=== PATIENT | female | born 1945 | race Caucasian/White ===

== ENCOUNTER → 2016-12-18 | Outpatient (REF) ==
[~2016-12-18] MED LIST: ALEVE 220MG220 MG PO; ALLEGRA 180MG180 MG PO; BETAPACE 120MG120 MG PO; BETAPACE 80MG80 MG PO; CARDIZEM CD 24240 MG PO; CENTRUM SILVER1 CTB PO; CULTURELLE CAP1 EAC1 PO; ELIQUIS 5MG PO; GAS-X80 MG PO; GLUCOSAMINE 1000 PO; HYZAAR 25 MG-101 TAB PO; HYZAAR 50-12.1 UDTAB PO; K-TAB20 PO; MUCINEX1200 MG PO; NASONEX SPRAY17 GM NS; NEURONTIN300 MG/CAP PO; NEXIUM 40MG40 MG PO; NORCO 325 MG-51 TAB PO; OMEGA-3 FISH1000 MG PO; REGLAN 10MG10 MG/TAB PO; ROBAXIN 75750 MG/TAB PO; RT ADVAIR 128 DISKUS IH; SINGULAIR 110 MG/TAB PO; TENORMIN 5050 MG/TAB PO; ZYLOPRIM 300MG300 MG PO; [UNRECOGNIZED DRUG - OTHER] OP; [UNRECOGNIZED DRUG - OTHER] PO; [UNRECOGNIZED DRUG - OTHER] PO
== END ==
LOC: ZLAB.WCH 10:10
DX: Z01.89 Encounter for other specified special examinations (principal)

== ENCOUNTER 2017-03-29 07:27 | Outpatient (CLI) | payer MEDICARE, OTHER ==
[~2017-03-29 07:27] MED LIST changes: -ALEVE 220MG220 MG PO; -[UNRECOGNIZED DRUG - OTHER] PO
[2017-03-29 08:30] VITALS: BP 143/49; PULSE 55
[2017-03-29] MEDS ORDERED: ALEVE 220MG220 MG PO (09:14)
[2017-03-29] MEDS ORDERED: [UNRECOGNIZED DRUG - OTHER] PO (09:14)
[2017-03-29 09:19] VITALS: BP 132/50; PULSE 53
== END 2017-03-29 10:15 | disposition home or self-care (01) ==
LOC: EUO 07:27 → COL.CAR 07:45 → EUO 10:15
DX: I48.91 Unspecified atrial fibrillation (principal)
CPT/HCPCS: 27124; C1764

== ENCOUNTER → 2017-08-08 | Outpatient (CLI) | payer MEDICARE, OTHER ==
[~2017-08-08] MED LIST changes: +ALEVE 220MG220 MG PO; +[UNRECOGNIZED DRUG - OTHER] PO
== END ==
LOC: MHCPAIN 13:23
DX: G89.29 Other chronic pain (principal); M47.27 Other spondylosis with radiculopathy, lumbosacral region; M53.3 Sacrococcygeal disorders, not elsewhere classified; M96.1 Postlaminectomy syndrome, not elsewhere classified
CPT/HCPCS: G0463

== ENCOUNTER → 2017-08-23 | Outpatient (CLI) | payer MEDICARE, OTHER | LOC: MHCPAIN 10:45 | DX: M51.16 Intervertebral disc disorders with radiculopathy, lumbar region (principal); M96.1 Postlaminectomy syndrome, not elsewhere classified; M71.38 Other bursal cyst, other site | CPT/HCPCS: J1040; Q9967 ==

== ENCOUNTER → 2017-12-11 | Outpatient (CLI) | payer MEDICARE, OTHER | LOC: MHCPAIN 09:57 | DX: G89.29 Other chronic pain (principal); M47.27 Other spondylosis with radiculopathy, lumbosacral region; M53.3 Sacrococcygeal disorders, not elsewhere classified; M96.1 Postlaminectomy syndrome, not elsewhere classified | CPT/HCPCS: G0463 ==

== ENCOUNTER → 2018-03-06 | Outpatient (CLI) | payer MEDICARE, OTHER | LOC: MHCPAIN 12:49 | DX: G89.29 Other chronic pain (principal); M47.817 Spondylosis without myelopathy or radiculopathy, lumbosacral region; M54.16 Radiculopathy, lumbar region; M53.3 Sacrococcygeal disorders, not elsewhere classified; M96.1 Postlaminectomy syndrome, not elsewhere classified | CPT/HCPCS: G0463 ==

== ENCOUNTER → 2018-03-21 | Outpatient (CLI) | payer MEDICARE, OTHER | LOC: MHCPAIN 12:03 | DX: M47.817 Spondylosis without myelopathy or radiculopathy, lumbosacral region (principal); M46.96 Unspecified inflammatory spondylopathy, lumbar region; M41.9 Scoliosis, unspecified | CPT/HCPCS: J1040; Q9967 ==

== ENCOUNTER → 2018-06-25 | Outpatient (CLI) | payer MEDICARE, OTHER | LOC: MHCPAIN 14:07 | DX: G89.29 Other chronic pain (principal); M47.817 Spondylosis without myelopathy or radiculopathy, lumbosacral region; M54.6 Pain in thoracic spine; M54.16 Radiculopathy, lumbar region; M53.3 Sacrococcygeal disorders, not elsewhere classified | CPT/HCPCS: G0463 ==

== ENCOUNTER → 2018-09-24 | Outpatient (CLI) | payer MEDICARE, OTHER | LOC: MHCPAIN 12:44 | DX: G89.29 Other chronic pain (principal); M47.817 Spondylosis without myelopathy or radiculopathy, lumbosacral region; M54.16 Radiculopathy, lumbar region; M53.3 Sacrococcygeal disorders, not elsewhere classified; M96.1 Postlaminectomy syndrome, not elsewhere classified | CPT/HCPCS: G0463 ==

== ENCOUNTER 2018-11-25 16:42 | Inpatient (IN) | payer MEDICARE, OTHER ==
[~2018-11-25] VITALS: Ht 154.9 cm; Wt 92.9 kg
[~2018-11-25 16:42] MED LIST changes: -ACIDOPHILIS; -BIOTIN10000 MCG PO; -EMU OIL 1 ML1 ML; -FLONASE NASAL S16 GM NS; -PAZEO2.5 ML OP; -PERCOCET 325 MG1 TA2 PO; -ROBAXIN 50500 MG/TAB PO; -RT ADVAIR 228 DISKUS IH; -SOLARAZE3%; -SPIRIVA RE2.5 MCG/Ac IH; -VENTOLIN0.09 MG IH; -ZYRTEC 10MG10 MG PO
--- NOTE | 2018-11-25 18:30 | NUR ---
Pt arrives to medical unit rm [id number] via EMS. Pt awake and alert, denies needs at this time. IVF's infusing through right AC without s/s of complications. Call light in reach.
[2018-11-25 18:58] VITALS: BP 117/44; PULSE 82; TEMP 101.5
[2018-11-25] MEDS ORDERED: RT ADVAIR 228 DISKUS IH (19:24)
[2018-11-25] MEDS ORDERED: SOLARAZE3% (19:27)
[2018-11-25] MEDS ORDERED: FLONASE NASAL S16 GM NS (19:30)
[2018-11-25] MEDS ORDERED: ROBAXIN 50500 MG/TAB PO (19:33)
[2018-11-25] MEDS ORDERED: PERCOCET 325 MG1 TA2 PO (19:35)
[2018-11-25] MEDS ORDERED: SPIRIVA RE2.5 MCG/Ac IH (19:39)
[2018-11-25] MEDS ORDERED: ZYRTEC 10MG10 MG PO (19:40)
[2018-11-25] MEDS ORDERED: VENTOLIN0.09 MG IH (19:41)
[2018-11-25] MEDS ORDERED: BIOTIN10000 MCG PO (19:43)
[2018-11-25] MEDS ORDERED: CENTRUM SILVER1 CTB PO (19:44)
[2018-11-25] MEDS ORDERED: EMU OIL 1 ML1 ML (19:46)
[2018-11-25] MEDS ORDERED: ACIDOPHILIS (19:48)
[2018-11-25] MEDS ORDERED: PAZEO2.5 ML OP (19:52)
--- NOTE | 2018-11-25 20:04 | NUR ---
Patient in room with at bedside. Assessment completed, elevated temperature, on 1 L oxygen for comfort at this time. Denies pain. Ambulatory with walker. Lung sounds clear. Abdomen soft/flat with bowel sounds all quadrants.
[2018-11-25 22:48] VITALS: BP 123/41; PULSE 72; TEMP 98.4
[2018-11-26 03:42] VITALS: BP 157/79; PULSE 73; TEMP 98.7
--- NOTE | 2018-11-26 05:10 | NUR ---
Patient slept most of the night, CPAP on at night. NS infusing, IV site free of complications. Denies pain. VSS, afebrile after acetaminophen administered last night. No further needs at this time.
--- NOTE | 2018-11-26 06:23 | NUR ---
Post void bladder scan, 75 mls after voiding.
[2018-11-26 06:40] LABS: BASO # 0.1 (0.0-0.2); BASO % 0.4 % (0.0-2.0); EOS # 0.1 (0.0-0.7); EOS % 1.1 % (0-4.0); GRAN # 8.3 (1.4-6.5); GRAN % 74.2 % (42.2-75.2); HEMOGLOBIN 11.9 g/dl (12.5-16.0); LYMPH # 1.7 (1.2-3.4); LYMPH % 14.9 % (20.0-51.0); MEAN CELL VOLUME 102 fl (80.0-100.0); MEAN CORPUSCULAR HEMOGLOBIN 34 pg (27.0-31.0); MEAN CORPUSCULAR HGB CONC 34 g/dl (33.0-37.0); MONO % 8.6 % (1.7-9.3); PLATELET COUNT 116 K/mm3 (130-400); RED BLOOD COUNT 3.46 M/mm3 (4.10-5.30); REDCELL DISTRIBUTION WIDTH-CV 13.7 % (11.5-14.5)
[2018-11-26 06:41] LABS: HEMATOCRIT 35.2 % (37.0-47.0)
[2018-11-26 06:53] LABS: ALBUMIN 3.2 gm/dL (3.5-5.0); BILIRUBIN,TOTAL 0.7 mg/dL (0.0-1.0); CALCIUM 8.2 mg/dL (8.4-10.2); CREATININE, serum 1.69 mg/dL (0.52-1.25); POTASSIUM 4.4 mmol/L (3.4-5.0); TOTAL PROTEIN 6.3 gm/dL (6.4-8.2)
--- NOTE | 2018-11-26 07:10 | NUR ---
appears to be dozing with CPAP on, awakens easily and patient removes CPAP, bedside shift report received from JOE Lea
--- NOTE | 2018-11-26 07:40 | NUR ---
appears to be sleeping, awakened and CPAP removed, full assessment completed, see interventions for further info, denies needs at this time
[2018-11-26 08:14] VITALS: BP 131/49; PULSE 59; TEMP 98.1
--- NOTE | 2018-11-26 08:50 | NUR ---
resting in bed, medicated with robaxin and percocet 5mg 1 tab per patient's request, she states she takes them every am to help with pain in order to be up
--- NOTE | 2018-11-26 09:05 | NUR ---
to radiology per WC for MRI
--- NOTE | 2018-11-26 09:45 | NUR ---
returned from MRI per WC, patient states she is having some wheezing that started while she was in MRI, some audible expiratory wheezing heard at intervals, a few exp wheezes heard on ausculation in upper lobs, denies shortness of breath, will rest in chair and order breakfast and if becomes worse will notify the nurse
--- NOTE | 2018-11-26 09:59 | NUR ---
physical therapy in to work with patient, ambulated out to morgan and then back to room and into recliner again
--- NOTE | 2018-11-26 10:45 | NUR ---
occupational therapy in to see anthony
--- NOTE | 2018-11-26 11:51 | NUR ---
Elvis Wagner and care team in to see patient
[2018-11-26 12:15] VITALS: BP 113/82; PULSE 60; TEMP 98.2
--- NOTE | 2018-11-26 12:15 | NUR ---
remains up in chair visiting with labor and delivery nurse, denies pain or needs
--- NOTE | 2018-11-26 12:33 | NUR ---
SW attended clinical rounding and met with patient to discuss discharge planning. Patient lives with rajesh in [place]. She uses a 4WW to ambulate. Patients PCP is Dr Cristo Wood and she obtains her medications from [place] [facility]. PT is recommending outpatient PT. No other discharge needs identified.
--- NOTE | 2018-11-26 13:34 | NUR ---
remains up in chair visiting with
--- NOTE | 2018-11-26 14:22 | NUR ---
back in bed and appears to be dozing
--- NOTE | 2018-11-26 16:14 | NUR ---
entered room and she is holding her left side and grimacing and tearful, states she called for her rescuse inhaler and nobody has come yet, cardiopulmonary notified again and they are here now, she is unsure why she is having pain in her left side, will monitor
[2018-11-26 16:25] VITALS: BP 130/94; PULSE 62; TEMP 98.3
--- NOTE | 2018-11-26 16:27 | NUR ---
states is feeling better now that rescuser inhaler provided, encouraged to try and rest
--- NOTE | 2018-11-26 16:50 | NUR ---
resting in bed visiting with a friend, states is feeling better now, no grimacing or tearring noted
--- NOTE | 2018-11-26 18:05 | NUR ---
called to room by DIRECTOR EPIDEMIOLOGY, patient is having SOB and audible wheezing and expeiraotry wheezes heard on ausculation, O2 sat on room air 92% and O2 on at 2L/NC, Umm COSTA notifed and orders received
--- NOTE | 2018-11-26 18:17 | NUR ---
BREATHING TX DONE NO IMPROVEMENT WITH BREATH SOUNDS ARE WORK OF BREATHING.
--- NOTE | 2018-11-26 18:24 | NUR ---
cardiopulmonary in and administering breathing treatment
--- NOTE | 2018-11-26 18:26 | NUR ---
PT HAS IMPROVEMENT IN BREATH SOUND AFTER 2ND DUONEB BUT NO DECREASE IN WORK OF BREATHING. PT PUT ON HER HOME CPAP WITH 12 CM TO HELP WITH THAT.
--- NOTE | 2018-11-26 18:34 | NUR ---
cardiouplmonary completed treatment and placed her on her CPAP, resting in bed with eyes closed, resp rate at 24, no audible wheezing heard
[2018-11-26 19:07] LABS: ARTERIAL BLD GAS O2 SATURATION 93.3 % (92-100); ARTERIAL BLD GAS TCO2 CT 16.9; ARTERIAL BLOOD GAS BASE EXCESS -6.3 (-2-2); ARTERIAL BLOOD GAS HCO3 16.1 meq/L (22-26); ARTERIAL BLOOD GAS PCO2 24.5 mmHg (35-45); ARTERIAL BLOOD GAS PO2 61.3 mmHg (80-100); ARTERIAL BLOOD GAS pH 7.44 (7.35-7.45)
--- NOTE | 2018-11-26 19:10 | NUR ---
bedside shift report given to JOE Lea, breathing is easier at this time at a rate of 20
[2018-11-26 19:59] VITALS: BP 129/54; PULSE 82; TEMP 100.4
--- NOTE | 2018-11-26 20:15 | NUR ---
Patient recovering from earlier episode of hyperventilation, SOB. CPAP off while eating dinner. C/O mild headache, and has a slight temperature, given tylenol for temp and pain. Sitting up at side of bed. Assessment completed. IV site free of complications, fluids at 75 mls/hr.
--- NOTE | 2018-11-26 20:43 | NUR ---
PT SITTING ON SIDE OF BED TRYING TO GET BACK IN BED. WE HELPED HER INTO BED AND THIS ACTIVITY CAUSED HER TO BE SHORT OF BREATH. GAVE PT TREATMENT WHICH HELPED. AFTER TX PT RINSED OUT MOUTH STEVE WENT ON HOME CPAP.
[2018-11-26 22:01] VITALS: TEMP 100
[2018-11-27 00:25] VITALS: BP 130/54; PULSE 66; TEMP 98.7
[2018-11-27 04:23] VITALS: BP 111/47; PULSE 58; TEMP 98.1
--- NOTE | 2018-11-27 05:31 | NUR ---
Patient slept most of the night, wore CPAP. No complaints of pain. Elevated temp at start of shift, acetaminophen lowered temp.
[2018-11-27 07:56] VITALS: BP 133/48; PULSE 59; TEMP 97.4
--- NOTE | 2018-11-27 08:25 | NUR ---
Pt resting in bed with call light within reach. PRN medications given for pain. Denies further needs at this time; will continue to monitor.
[2018-11-27 10:35] VITALS: BP 130/60; PULSE 61; TEMP 97.8
[2018-11-27 11:03] LABS: BASO % 0.5 % (0.0-2.0); EOS # 0.1 (0.0-0.7); EOS % 1.5 % (0-4.0); GRAN % 68.1 % (42.2-75.2); HEMOGLOBIN 11.2 g/dl (12.5-16.0); LYMPH # 1.8 (1.2-3.4); MEAN CELL VOLUME 100 fl (80.0-100.0); MEAN CORPUSCULAR HEMOGLOBIN 34 pg (27.0-31.0); MEAN CORPUSCULAR HGB CONC 34 g/dl (33.0-37.0); MEAN PLATELET VOLUME 10.3 fl (7.4-10.4); MONO # 0.8 (0.1-0.6); MONO % 9.2 % (1.7-9.3); PLATELET COUNT 149 K/mm3 (130-400); RED BLOOD COUNT 3.28 M/mm3 (4.10-5.30); REDCELL DISTRIBUTION WIDTH-CV 13.8 % (11.5-14.5)
[2018-11-27 11:04] LABS: HEMATOCRIT 32.8 % (37.0-47.0)
[2018-11-27 11:11] LABS: CALCIUM 8.2 mg/dL (8.4-10.2); CREATININE, serum 1.26 mg/dL (0.52-1.25); POTASSIUM 4.3 mmol/L (3.4-5.0)
--- NOTE | 2018-11-27 13:26 | NUR ---
First visit from the bankruptcy processor. prayed with patient. No other needs right now.
--- NOTE | 2018-11-27 14:27 | NUR ---
PT ON ROOM AIR @ REST SPO2 92% PT WALKED ON ROOM AIR W/PT AND RT SPO2 85% AFTER APPROX 40 FT. O2 ON @ 2 LPM NC PT WALKED BACK TO ROOM. C/O FEELLING WINDED. SPO2 93%
[2018-11-27] MEDS ORDERED: CEFTIN500 MG PO (15:22)
--- NOTE | 2018-11-27 15:43 | NUR ---
SW and SW student met with patient to discuss home o2. Patient would like to use [facility] and signed a choice form. SW obtained prescription and faxed clinical information to [facility]. Concentrator will be delivered to the hosptial prior to patients dc today. No other needs. Patient dc home today with family support.
--- NOTE | 2018-11-27 17:00 | NUR ---
Reviewed all discharge medications, instructions, and follow up appointments with patient. INT and tele removed. All questions answered in depth. Reviewed importance of antibiotics. Denies further needs at this time. Pt walked out to car and discharges.
== END 2018-11-27 17:06 | disposition home or self-care (01) | DRG 683 ==
LOC: MEDICAL 16:42
PROVIDERS: Nurse Practitioner Family; Physician Assistant; ADMIT Hospitalist
DX: N17.9 Acute kidney failure, unspecified (principal); N39.0 Urinary tract infection, site not specified; E87.1 Hypo-osmolality and hyponatremia; J98.11 Atelectasis; E86.0 Dehydration; I10 Essential (primary) hypertension; I48.91 Unspecified atrial fibrillation; Z79.01 Long term (current) use of anticoagulants; J45.909 Unspecified asthma, uncomplicated; R73.9 Hyperglycemia, unspecified; B96.20 Unspecified Escherichia coli [E. coli] as the cause of diseases classified elsewhere; M25.362 Other instability, left knee
CPT/HCPCS: 99222-AI; 99239; A4216; A9284; J0696; J2405; J7030

== ENCOUNTER → 2018-11-25 | Outpatient (REF) ==
[~2018-11-25] MED LIST changes: +ACIDOPHILIS; +BIOTIN10000 MCG PO; +EMU OIL 1 ML1 ML; +FLONASE NASAL S16 GM NS; +PAZEO2.5 ML OP; +PERCOCET 325 MG1 TA2 PO; +ROBAXIN 50500 MG/TAB PO; +RT ADVAIR 228 DISKUS IH; +SOLARAZE3%; +SPIRIVA RE2.5 MCG/Ac IH; +VENTOLIN0.09 MG IH; +ZYRTEC 10MG10 MG PO
== END ==
LOC: ZLAB.WCH 19:22
DX: Z01.89 Encounter for other specified special examinations (principal)

== ENCOUNTER → 2018-12-17 | Outpatient (CLI) | payer MEDICARE, OTHER ==
[~2018-12-17] MED LIST changes: +ACIDOPHILIS; +BIOTIN10000 MCG PO; +CEFTIN500 MG PO; +EMU OIL 1 ML1 ML; +FLONASE NASAL S16 GM NS; +PAZEO2.5 ML OP; +PERCOCET 325 MG1 TA2 PO; +ROBAXIN 50500 MG/TAB PO; +RT ADVAIR 228 DISKUS IH; +SOLARAZE3%; +SPIRIVA RE2.5 MCG/Ac IH; +VENTOLIN0.09 MG IH; +ZYRTEC 10MG10 MG PO
== END ==
LOC: MHCPAIN 12:08
DX: G89.29 Other chronic pain (principal); M47.817 Spondylosis without myelopathy or radiculopathy, lumbosacral region; M54.16 Radiculopathy, lumbar region; M53.3 Sacrococcygeal disorders, not elsewhere classified; M96.1 Postlaminectomy syndrome, not elsewhere classified
CPT/HCPCS: G0463

== ENCOUNTER → 2019-03-19 | Outpatient (CLI) | payer MEDICARE, OTHER | LOC: MHCPAIN 12:43 | DX: G89.29 Other chronic pain (principal); M47.817 Spondylosis without myelopathy or radiculopathy, lumbosacral region; M54.16 Radiculopathy, lumbar region; M53.3 Sacrococcygeal disorders, not elsewhere classified; M96.1 Postlaminectomy syndrome, not elsewhere classified | CPT/HCPCS: G0463 ==

== ENCOUNTER → 2019-06-04 | Outpatient (CLI) | payer MEDICARE, OTHER | LOC: MHCPAIN 12:37 | DX: G89.29 Other chronic pain (principal); M47.817 Spondylosis without myelopathy or radiculopathy, lumbosacral region; M54.16 Radiculopathy, lumbar region; M53.3 Sacrococcygeal disorders, not elsewhere classified; M48.061 Spinal stenosis, lumbar region without neurogenic claudication | CPT/HCPCS: G0463 ==

== ENCOUNTER → 2019-08-26 | Outpatient (CLI) | payer MEDICARE, OTHER | LOC: MHCPAIN 12:51 | DX: G89.29 Other chronic pain (principal); M47.817 Spondylosis without myelopathy or radiculopathy, lumbosacral region; M54.16 Radiculopathy, lumbar region; M53.3 Sacrococcygeal disorders, not elsewhere classified; M96.1 Postlaminectomy syndrome, not elsewhere classified | CPT/HCPCS: G0463 ==

== ENCOUNTER → 2019-11-25 | Outpatient (CLI) | payer MEDICARE, OTHER | LOC: MHCPAIN 12:48 | DX: M47.817 Spondylosis without myelopathy or radiculopathy, lumbosacral region (principal); M54.16 Radiculopathy, lumbar region | CPT/HCPCS: G0463 ==

== ENCOUNTER 2019-12-05 13:45 | Outpatient (RCR) | payer MEDICARE, OTHER | END 2019-12-09 | disposition home or self-care (01) | LOC: WSC | DX: G89.29 Other chronic pain (principal); M54.5 Low back pain ==

== ENCOUNTER → 2019-12-31 | Outpatient (CLI) | payer MEDICARE, OTHER | LOC: COL.RAD 10:58 | DX: Z01.812 Encounter for preprocedural laboratory examination (principal); M47.816 Spondylosis without myelopathy or radiculopathy, lumbar region; M43.16 Spondylolisthesis, lumbar region; M48.061 Spinal stenosis, lumbar region without neurogenic claudication; N18.3 Chronic kidney disease, stage 3 (moderate); Z98.890 Other specified postprocedural states | CPT/HCPCS: A9585 ==

== ENCOUNTER → 2020-05-25 | Outpatient (CLI) | payer MEDICARE, OTHER | LOC: MHCPAIN 12:55 | DX: M47.817 Spondylosis without myelopathy or radiculopathy, lumbosacral region (principal); M54.5 Low back pain; M53.3 Sacrococcygeal disorders, not elsewhere classified; G89.29 Other chronic pain; M54.16 Radiculopathy, lumbar region | CPT/HCPCS: G0463 ==

== ENCOUNTER → 2020-06-03 | Outpatient (CLI) | payer MEDICARE, OTHER | LOC: MHCPAIN 08:54 | DX: M47.817 Spondylosis without myelopathy or radiculopathy, lumbosacral region (principal); M54.5 Low back pain; M96.1 Postlaminectomy syndrome, not elsewhere classified; M54.16 Radiculopathy, lumbar region ==

== ENCOUNTER → 2020-06-16 | Outpatient (CLI) | payer MEDICARE, OTHER | LOC: MHCPAIN 12:24 | DX: M47.817 Spondylosis without myelopathy or radiculopathy, lumbosacral region (principal); M54.5 Low back pain; M96.1 Postlaminectomy syndrome, not elsewhere classified; M53.3 Sacrococcygeal disorders, not elsewhere classified; G89.29 Other chronic pain | CPT/HCPCS: G0463 ==

== ENCOUNTER → 2020-07-08 | Outpatient (CLI) | payer MEDICARE, OTHER | LOC: MHCPAIN 12:53 | DX: M47.817 Spondylosis without myelopathy or radiculopathy, lumbosacral region (principal); M96.1 Postlaminectomy syndrome, not elsewhere classified; M54.5 Low back pain | CPT/HCPCS: J1040; Q9967 ==

== ENCOUNTER → 2020-08-24 | Outpatient (CLI) | payer MEDICARE, OTHER | LOC: MHCPAIN 12:48 | DX: M47.817 Spondylosis without myelopathy or radiculopathy, lumbosacral region (principal); M54.5 Low back pain; M53.3 Sacrococcygeal disorders, not elsewhere classified; G89.29 Other chronic pain; M96.1 Postlaminectomy syndrome, not elsewhere classified | CPT/HCPCS: G0463 ==

== ENCOUNTER → 2020-11-23 | Outpatient (CLI) | payer MEDICARE, OTHER | LOC: MHCPAIN 12:42 | DX: M47.816 Spondylosis without myelopathy or radiculopathy, lumbar region (principal); M96.1 Postlaminectomy syndrome, not elsewhere classified; M53.3 Sacrococcygeal disorders, not elsewhere classified; G89.29 Other chronic pain | CPT/HCPCS: G0463 ==

== ENCOUNTER → 2020-12-22 | Outpatient (CLI) | payer MEDICARE, OTHER | LOC: MHCPAIN 13:56 | DX: M47.816 Spondylosis without myelopathy or radiculopathy, lumbar region (principal); M54.5 Low back pain; M96.1 Postlaminectomy syndrome, not elsewhere classified; G89.29 Other chronic pain | CPT/HCPCS: G0463 ==

== ENCOUNTER 2021-03-03 13:45 | Outpatient (RCR) | payer MEDICARE, OTHER | END 2021-03-18 09:27 | disposition home or self-care (01) | LOC: WSPT 13:45 | DX: M19.011 Primary osteoarthritis, right shoulder (principal); Z98.1 Arthrodesis status ==

== ENCOUNTER → 2021-03-29 | Outpatient (CLI) | payer MEDICARE, OTHER | LOC: MHCPAIN 12:54 | DX: M47.817 Spondylosis without myelopathy or radiculopathy, lumbosacral region (principal); M53.3 Sacrococcygeal disorders, not elsewhere classified; M96.1 Postlaminectomy syndrome, not elsewhere classified; G89.29 Other chronic pain | CPT/HCPCS: G0463 ==

== ENCOUNTER 2021-05-06 20:16 | Emergency (ER) | payer MEDICARE, OTHER ==
[~2021-05-06] VITALS: Ht 152.4 cm; Wt 80.0 kg
[2021-05-06 20:26] VITALS: TEMP 98.7
[2021-05-06] MEDS ORDERED: PERCOCET 325 MG1 TA2 PO (22:14)
[2021-05-06 22:30] VITALS: BP 123/82; PULSE 85
== END 2021-05-06 22:30 | disposition home or self-care (01) ==
LOC: COL.ER 20:16
DX: S80.01XA Contusion of right knee, initial encounter (principal); M25.461 Effusion, right knee; I10 Essential (primary) hypertension; J45.909 Unspecified asthma, uncomplicated; I48.91 Unspecified atrial fibrillation; G89.29 Other chronic pain; M54.9 Dorsalgia, unspecified; Z79.01 Long term (current) use of anticoagulants; Z79.51 Long term (current) use of inhaled steroids; Z79.891 Long term (current) use of opiate analgesic; Z79.899 Other long term (current) drug therapy; W01.0XXA Fall on same level from slipping, tripping and stumbling without subsequent striking against object, initial encounter; Y93.01 Activity, walking, marching and hiking

== ENCOUNTER → 2021-06-28 | Outpatient (CLI) | payer MEDICARE, OTHER | LOC: MHCPAIN 12:46 | DX: M47.817 Spondylosis without myelopathy or radiculopathy, lumbosacral region (principal); M54.16 Radiculopathy, lumbar region; M96.1 Postlaminectomy syndrome, not elsewhere classified; M53.3 Sacrococcygeal disorders, not elsewhere classified | CPT/HCPCS: G0463 ==

== ENCOUNTER → 2021-07-07 | Outpatient (CLI) | payer MEDICARE, OTHER | LOC: MHCPAIN 09:51 | DX: M47.816 Spondylosis without myelopathy or radiculopathy, lumbar region (principal); M53.3 Sacrococcygeal disorders, not elsewhere classified; M54.16 Radiculopathy, lumbar region | CPT/HCPCS: G0260; J1100; Q9967 ==

== ENCOUNTER → 2021-09-27 | Outpatient (CLI) | payer MEDICARE, OTHER | LOC: MHCPAIN 12:22 | DX: M47.817 Spondylosis without myelopathy or radiculopathy, lumbosacral region (principal); M54.50 Low back pain, unspecified; M53.3 Sacrococcygeal disorders, not elsewhere classified; M96.1 Postlaminectomy syndrome, not elsewhere classified | CPT/HCPCS: G0463 ==

== ENCOUNTER → 2021-10-13 | Outpatient (CLI) | payer MEDICARE, OTHER | LOC: MHCPAIN 08:28 | DX: M47.817 Spondylosis without myelopathy or radiculopathy, lumbosacral region (principal); M53.3 Sacrococcygeal disorders, not elsewhere classified; M54.50 Low back pain, unspecified | CPT/HCPCS: J1040; Q9967 ==

== ENCOUNTER → 2021-12-20 | Outpatient (CLI) | payer MEDICARE, OTHER | LOC: MHCPAIN 09:53 | DX: M47.817 Spondylosis without myelopathy or radiculopathy, lumbosacral region (principal); M53.3 Sacrococcygeal disorders, not elsewhere classified; M54.16 Radiculopathy, lumbar region; G89.29 Other chronic pain | CPT/HCPCS: G0463 ==

== ENCOUNTER → 2021-12-29 | Outpatient (CLI) | payer MEDICARE, OTHER | LOC: MHCPAIN 09:37 | DX: M47.816 Spondylosis without myelopathy or radiculopathy, lumbar region (principal); M96.1 Postlaminectomy syndrome, not elsewhere classified; M54.16 Radiculopathy, lumbar region | CPT/HCPCS: J1100; Q9967 ==

== ENCOUNTER → 2022-02-28 | Outpatient (CLI) | payer MEDICARE, OTHER | LOC: MHCPAIN 13:08 | DX: M47.816 Spondylosis without myelopathy or radiculopathy, lumbar region (principal); M54.50 Low back pain, unspecified; M53.3 Sacrococcygeal disorders, not elsewhere classified; M96.1 Postlaminectomy syndrome, not elsewhere classified | CPT/HCPCS: G0463 ==

== ENCOUNTER → 2022-06-19 | Outpatient (CLI) | payer MEDICARE, OTHER | LOC: MHCPAIN 11:04 | DX: M47.896 Other spondylosis, lumbar region (principal); M96.1 Postlaminectomy syndrome, not elsewhere classified; G89.29 Other chronic pain | CPT/HCPCS: G0463 ==

== ENCOUNTER → 2022-09-12 | Outpatient (CLI) | payer MEDICARE, OTHER | LOC: MHCPAIN 10:54 | DX: M47.896 Other spondylosis, lumbar region (principal); M79.2 Neuralgia and neuritis, unspecified; M53.3 Sacrococcygeal disorders, not elsewhere classified | CPT/HCPCS: G0463 ==

== ENCOUNTER → 2022-12-18 | Outpatient (CLI) | payer MEDICARE, OTHER | LOC: MHCPAIN 10:19 | DX: M54.17 Radiculopathy, lumbosacral region (principal); M41.26 Other idiopathic scoliosis, lumbar region; M96.1 Postlaminectomy syndrome, not elsewhere classified; M47.896 Other spondylosis, lumbar region | CPT/HCPCS: G0463 ==

== ENCOUNTER → 2023-01-04 | Outpatient (CLI) | payer MEDICARE, OTHER | LOC: MHCPAIN 08:14 | DX: M47.817 Spondylosis without myelopathy or radiculopathy, lumbosacral region (principal); M54.16 Radiculopathy, lumbar region | CPT/HCPCS: J1100; Q9967 ==

== ENCOUNTER → 2023-03-13 | Outpatient (CLI) | payer MEDICARE, OTHER | LOC: MHCPAIN 09:58 | DX: M47.896 Other spondylosis, lumbar region (principal); M54.16 Radiculopathy, lumbar region; M96.1 Postlaminectomy syndrome, not elsewhere classified; M53.3 Sacrococcygeal disorders, not elsewhere classified | CPT/HCPCS: G0463 ==

== ENCOUNTER → 2023-08-29 | Outpatient (CLI) | payer MEDICARE, OTHER | LOC: MHCPAIN 10:36 | DX: M54.16 Radiculopathy, lumbar region (principal); M96.1 Postlaminectomy syndrome, not elsewhere classified; M47.896 Other spondylosis, lumbar region; G89.29 Other chronic pain | CPT/HCPCS: G0463 ==

== ENCOUNTER → 2023-11-21 | Outpatient (CLI) | payer MEDICARE, OTHER | LOC: MHCPAIN 09:48 | DX: M47.896 Other spondylosis, lumbar region (principal); M96.1 Postlaminectomy syndrome, not elsewhere classified; G89.29 Other chronic pain; M41.86 Other forms of scoliosis, lumbar region | CPT/HCPCS: G0463 ==

== ENCOUNTER → 2024-10-07 | Outpatient (CLI) | payer MEDICARE, OTHER | LOC: MHCPAIN 08:15 | DX: M43.12 Spondylolisthesis, cervical region (principal); M48.02 Spinal stenosis, cervical region; M54.12 Radiculopathy, cervical region; I48.91 Unspecified atrial fibrillation; Z79.01 Long term (current) use of anticoagulants; M41.86 Other forms of scoliosis, lumbar region | CPT/HCPCS: G0463 ==